=== PATIENT | female | born 1955 | race Hispanic/Latino ===

== ENCOUNTER → 2022-12-06 | Outpatient (CLI) | payer OTHER | END | disposition home or self-care (01) | LOC: RAH 12:38 | PROVIDERS: ATTEND Internal Medicine | DX: M41.25 Other idiopathic scoliosis, thoracolumbar region (principal); M47.24 Other spondylosis with radiculopathy, thoracic region; Z12.31 Encounter for screening mammogram for malignant neoplasm of breast | CPT/HCPCS: 72070; 72082 ==